=== PATIENT | female | born 1960 | race Asian ===

== ENCOUNTER 2022-11-05 17:57 | Emergency (ER) | payer OTHER ==
[~2022-11-05] VITALS: Ht 152.4 cm; Wt 63.0 kg
[2022-11-05 18:05] VITALS: BP 167/60
== END 2022-11-05 20:09 | disposition home or self-care (01) ==
LOC: ER 18:05
DX: R68.89 Other general symptoms and signs (principal); Z85.9 Personal history of malignant neoplasm, unspecified; Z20.822 Contact with and (suspected) exposure to COVID-19
CPT/HCPCS: 87426; 99283; C9803